=== PATIENT | male | born 1990 | race Caucasian/White ===

== ENCOUNTER 2017-10-29 14:20 | Emergency (ER) | payer OTHER ==
[~2017-10-29] VITALS: Ht 177.8 cm; Wt 83.9 kg
== END 2017-10-29 17:20 | disposition home or self-care (01) ==
LOC: ED 14:20
DX: K21.9 Gastro-esophageal reflux disease without esophagitis (principal); R10.31 Right lower quadrant pain
CPT/HCPCS: 74177; 80053; 81001; 82150; 83690; 85025; 96374; 96375; 99284; J1885; J2405; J7030; Q9967

== ENCOUNTER 2017-12-12 21:02 | Emergency (ER) | payer OTHER ==
[~2017-12-12] VITALS: Ht 177.8 cm; Wt 83.9 kg
[2017-12-12] MEDS ORDERED: DICYCLOMINE HCL10 MG PO (21:16)
== END 2017-12-13 00:01 | disposition home or self-care (01) ==
LOC: ED 21:02
DX: R10.31 Right lower quadrant pain (principal); Z79.899 Other long term (current) drug therapy
CPT/HCPCS: 74177; 80053; 81001; 83690; 85025; 96374; 99284; J1885; Q9967